=== PATIENT | male | born 1980 | race Caucasian/White ===

== ENCOUNTER 2021-06-23 07:52 | Outpatient (CLI) | payer BC, SELFPAY ==
--- NOTE | 2021-07-03 13:21 | WPDSLEEPSTUD ---
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 The patient rarely awakens from sleep short of breath. He denies awakening at night with heartburn, belching or cough. He occasionally snores loud enough that others complain. He rarely has trouble sleeping when he has a cold. He rarely wakes up gasping for air throughout the night. He rarely has breathing problems at night observed by himself or others. He rarely sweats excessively at night. He denies having heart palpitations or irregular heartbeats during the night. He frequently falls asleep during the day. He denies falling asleep while driving. He denies sleep paralysis and cataplexy. He rarely has trouble at school or work due to sleepiness. He occasionally experiences vivid dreamlike scenes upon awakening or falling asleep. He denies feeling afraid of going to sleep. He rarely has nightmares. He occasionally remembers his dreams. He frequently has thoughts racing through his mind. He constantly feels sad, depressed and anxious. He frequently has muscular tension. He occasionally notices parts of his body jerk. He occasionally kicks during the night. He denies having crawling and aching feelings in his legs. He rarely has leg pain during the night. He frequently grinds his teeth during sleep but will rarely awaken with morning jaw pain. He is rarely bothered by pain during the day and never awakened by pain during the night. He occasionally wakes up feeling stiff in the morning. He occasionally wakes up with sore achy muscles. He rarely wakes up with pain in the neck, spine and other joints. He goes to bed at midnight on both weekdays and weekends. It takes him less than 5 minutes to fall asleep. He wakes up once throughout the night to urinate. He is able to fall back asleep immediately. He wakes up at 7:00 a.m. on both weekdays and weekends. He typically gets 5-6 hours of sleep per night. He does not stay in bed after waking up in the morning. He currently lives with his . He does not consume any caffeinated beverages within 2 hours of bedtime. He does not engage in physical exercise before bedtime. He denies reading and watching television before falling asleep. He will take naps in the afternoon or the evening but they are not refreshing. He will drink more than 6 caffeinated beverages throughout the day. He currently smokes 2 packs of cigarettes per day. He denies alcohol use. He does use marijuana daily. [facility] Past Medical History Medical History Depression Surgical History Surgical History History of cholecystectomy Social History Social History Smoking packs per day: 1 Smoking cigarettes per day: 20.0 Years smoked: 20 Smoking pack-years: 20.00 Smoking status: Current every day smoker (2 ppd and marijuana daily) Medications Home Medications Medication Instructions Recorded Confirmed Type bupropion HCl 150 mg 24 hr tablet, 150 mg PO QAM 06/09/21 06/09/21 History extended release lisdexamfetamine 30 mg capsule 30 mg PO DAILY 06/09/21 06/09/21 History lithium carbonate 150 mg capsule 150 mg PO QID 06/09/21 06/09/21 History sertraline 100 mg tablet 100 mg PO DAILY 06/09/21 06/09/21 History S
[2021-07-03 15:58] VITALS: BMI 35.6
== END 2021-06-24 06:40 | disposition home or self-care (01) ==
LOC: ANHCSM 07:54
PROVIDERS: Visit Provider Internal Medicine Critical Care Medicine
DX: G47.33 Obstructive sleep apnea (adult) (pediatric) (principal)
CPT/HCPCS: 95811